=== PATIENT | male | born 1960 | race Caucasian/White ===

== ENCOUNTER 2016-05-25 23:59 | Emergency (ER) | payer OTHER ==
--- NOTE | ~2016-05-25 | CT71 ---
[facility] A Service of [facility] RADIOLOGY TEXT RESULTS PATIENT: SANTOS MCNAIR LOCATION: [facility] : 58 UNIT #: [id number] AGE: [address]: Ron Munoz MD SEX: M ORDER DR: [id number] [facility] [address] [place], [place] [address] [id number] E MR#: [id number] Acc #: [id number] NAME: SANTOS MCNAIR : 1960 SEX: M STUDY DATE/TIME: 05/26/2016 03:33 UNIT: [facility] ROOM: STUDY DESCRIPTION: CT Head Wo Contrast Attending Physician: Ron Munoz M.D. Ordering Physician: Ron Munoz M.D. Primary Care Physician: Bill Luque M.D. MEDICAL IMAGING REPORT This report is preliminary unless electronic signature is present EXAM Head CT, 05/26/2016 at 03:33 INDICATION Near-syncopal episode yesterday and today. Patient subsequently fell and right side of head. Headache. FINDINGS Axial images were obtained from base to vertex without contrast. No comparison. This CT exam was performed with one or more of the following radiation dose reduction techniques: automatic exposure control, adjustment of mA and/or kV according to patient size, and iterative reconstruction. There is mild generalized atrophy. Ventricular size and configuration are within normal limits. There is no acute infarct or hemorrhage. There are no masses. There is some atherosclerotic calcifications in the carotid siphons. No skull fracture is seen. IMPRESSION Mild generalized atrophy, otherwise negative head CT. Dictated by... David Bhakta Jr., M.D. THIS IS AN ELECTRONICALLY VERIFIED REPORT David Bhakta Jr., M.D. at 05/26/2016 6:26 AM ZAFAR/arti [facility] A Service of [facility] RADIOLOGY TEXT RESULTS PATIENT: SANTOS MCNAIR LOCATION: [facility] : 58 UNIT #: [id number] AGE: [address]: Ron Munoz MD SEX: M ORDER DR: TD: 05/26/2016 04:53 JOB #: [id number] MEDICAL IMAGING REPORT Page 1 of 1 COPY
--- NOTE | ~2016-05-25 | EKG ---
PATIENT: SANTOS MCNAIR UNIT #: [id number] Ventricular Rate: 73 BPM Atrial Rate: 73 BPM P-R Interval: 160 ms QRS Duration: 96 ms Q-T Interval: 404 ms QTC Calculation(Bezet): 445 ms P [place]: 62 degrees Calculated R [place]: -11 degrees Calculated T [place]: 46 degrees Diagnosis Line: Normal sinus rhythm Diagnosis Line: Normal ECG Diagnosis Line: When compared with ECG of 25-MAY-2016 23:29, Diagnosis Line: (unconfirmed) Diagnosis Line: No significant change was found Diagnosis Line: Confirmed by HEMA TELLES MD ([id number]) on 05/27/2016 Diagnosis Line: 5:57:31 AM INTERPRETING MD: KOKI LOGAN
--- NOTE | ~2016-05-25 | CR230 ---
[facility] A Service of [facility] & [facility] RADIOLOGY TEXT RESULTS PATIENT: SANTOS MCNAIR LOCATION: [facility] : 58 UNIT #: [id number] AGE: [address]: Ron Munoz MD SEX: M ORDER DR: [id number] [facility] [address] [place], [place] [address] [id number] E MR#: [id number] Acc #: [id number] NAME: SANTOS MCNAIR : 1960 SEX: M STUDY DATE/TIME: 05/26/2016 03:01 UNIT: [facility] ROOM: STUDY DESCRIPTION: CR Shoulder Min 2 View Rt Attending Physician: Ron Munoz M.D. Ordering Physician: Ron Munoz M.D. Primary Care Physician: Bill Luque M.D. MEDICAL IMAGING REPORT This report is preliminary unless electronic signature is present EXAM Right shoulder, 05/26/2016 at 03:01 INDICATION Shoulder pain after fall 1 day ago. FINDINGS 3 views of the right shoulder were obtained. There is no fracture or dislocation. There is no AC joint separation. There is some AC joint arthropathy. IMPRESSION AC joint arthropathy. No acute findings in the shoulder. Dictated by... David Bhakta Jr., M.D. THIS IS AN ELECTRONICALLY VERIFIED REPORT David Bhakta Jr., M.D. at 05/26/2016 6:26 AM ZAFAR/arti TD: 05/26/2016 04:41 JOB #: [id number] MEDICAL IMAGING REPORT Page 1 of 1 COPY
--- NOTE | ~2016-05-25 | EKG ---
PATIENT: SANTOS MCNAIR UNIT #: [id number] Ventricular Rate: 87 BPM Atrial Rate: 87 BPM P-R Interval: 158 ms QRS Duration: 98 ms Q-T Interval: 382 ms QTC Calculation(Bezet): 459 ms P [place]: 73 degrees Calculated R [place]: -22 degrees Calculated T [place]: 66 degrees Diagnosis Line: Normal sinus rhythm Diagnosis Line: Normal ECG Diagnosis Line: No previous ECGs available Diagnosis Line: Confirmed by HEMA TELLES MD ([id number]) on 05/26/2016 Diagnosis Line: 8:08:44 PM INTERPRETING MD: KOKI LOGAN
--- NOTE | ~2016-05-25 | CR170 ---
[facility] A Service of [facility] RADIOLOGY TEXT RESULTS PATIENT: SANTOS MCNAIR LOCATION: [facility] : 58 UNIT #: [id number] AGE: [address]: Ron Munoz MD SEX: M ORDER DR: [id number] [facility] [address] [place] [address]. [place], [place] [address] [id number] E MR#: [id number] Acc #: [id number] NAME: SANTOS MCNAIR : 1960 SEX: M STUDY DATE/TIME: 05/26/2016 03:03 UNIT: [facility] ROOM: STUDY DESCRIPTION: CR Knee 2 Views Rt Attending Physician: Ron Munoz M.D. Ordering Physician: Ron Munoz M.D. Primary Care Physician: Bill Luque M.D. MEDICAL IMAGING REPORT This report is preliminary unless electronic signature is present EXAM Right knee, 05/26/2016 at 03:03 INDICATIONS Knee pain for 1 day after a fall. FINDINGS 3 views of the right knee were obtained. There is tricompartmental osteoarthritis. No fracture is seen and there is no joint effusion. Note is made of atherosclerotic disease. IMPRESSION Tricompartmental osteoarthritis. No acute findings in the knee. Dictated by... David Bhakta Jr., M.D. THIS IS AN ELECTRONICALLY VERIFIED REPORT David Bhakta Jr., M.D. at 05/26/2016 6:26 AM ZAFAR/arti TD: 05/26/2016 04:48 JOB #: [id number] MEDICAL IMAGING REPORT Page 1 of 1 COPY
[~2016-05-25 23:59] MED LIST: ATORVASTATIN CA10 MG; ATORVASTATIN CA10 MG PO; CELEXA PO; CENTRUM SILVER PO; CHOLESTEROL MED; CLEOCIN PO; CRESTOR PO; EC-NAPROSYN500 MG PO; FARXIGA5 MG PO; FISH OIL 1,0001 CAP PO; HCTZ PO; INVOKANA100 MG PO; LOPRESSOR PO; LORTAB 10/500 T1 TAB PO; PHENTERMINE H37.5 M1 PO; SENNA S TABLET1 TAB PO; VITAMIN C PO; VOLTAREN50 MG PO; VOLTAREN75 MG PO; ZOFRAN PO
[2016-05-26 02:28] LABS: BASOPHIL# 0.1 X10e3 (0-0.3); BASOPHIL% 0.8 % (0-2.5); DIFF IND NO; EOSINOPHIL# 0.2 X10e3 (0-0.7); EOSINOPHIL% 2.8 % (0.0-7.0); HEMATOCRIT 47.3 % (38.0-50.0); HEMOGLOBIN 15.7 gm/dL (13.0-16.0); LYMPHOCYTE# 1.8 X10e3 (1.0-3.5); MEAN CELL VOLUME 91.6 FL (83-96); MEAN CORPUSCULAR HEMOGLOBIN 30.4 PG (28-34); MEAN CORPUSCULAR HGB CONC 33.2 g/dL (30-36); MEAN PLATELET VOLUME 9.3 FL (6.5-11.5); MONOCYTE# 0.7 X10e3 (0-1.0); MONOCYTE% 9.7 % (3.0-12.0); NEUTROPHIL# 4.6 X10e3 (1.5-7.1); NEUTROPHIL% 62.7 % (40-75); PLATELET COUNT 203 X10e3 (140-420); RED BLOOD COUNT 5.16 X10e (3.90-5.60); RED CELL DISTRIBUTION WIDTH 13.4 % (11.0-15.5); WHITE BLOOD COUNT 7.3 X10e3 (4.0-10.5)
[2016-05-26 03:22] LABS: ALBUMIN SERUM 4.1 g/dL (3.5-5.0); BILIRUBIN, DIRECT 0.1 mg/dL (0.0-0.2); BILIRUBIN,TOTAL 0.1 mg/dL (0.2-2.0); BUN/CREATININE RATIO 24.44; CALCIUM SERUM 8.7 mg/dL (8.4-10.2); CREATININE SERUM 0.9 mg/dL (0.6-1.4); GLOM FILT RATE Estimated 95.1 mL/min (>60); POTASSIUM 3.8 mmol/L (3.5-5.1); PROTEIN TOTAL SERUM 7.3 g/dL (6.0-8.3)
[2016-05-26 04:33] LABS: POC - CKMB 1.3 ng/mL (0.0-7.9); POC - TROPONIN <0.05 ng/mL (<=0.05)
== END 2016-05-26 04:05 | disposition home or self-care (01) ==
LOC: CED 23:59
PROVIDERS: Emergency Medicine
DX: S80.01XA Contusion of right knee, initial encounter (principal); S40.011A Contusion of right shoulder, initial encounter; W18.09XA Striking against other object with subsequent fall, initial encounter; Y92.9 Unspecified place or not applicable
CPT/HCPCS: 36415; 70450; 73030; 73560; 80048; 80076; 82553; 84484; 85025; 93005; 99284; J1885